=== PATIENT | female | born 2000 | race Caucasian/White ===

== ENCOUNTER 2024-06-14 14:04 | Emergency (ER) | payer MEDICAID, SELFPAY ==
[2024-06-14 14:17] VITALS: BP 129/88; PULSE 102; RESP 18; TEMP 37; O2SAT 99; BMI 33.4
--- NOTE | 2024-06-14 14:20 | XR_ITS ---
Examination: Knee, right , 3 views Technique: Knee AP, lateral, oblique 3 views Date and time of exam: June 14, 2024 1428 hrs. Indications: Patient fell 2 days ago with injury to the knee, knee pain Findings: No acute fracture Mild to moderate tricompartment osteoarthritis Moderate knee effusion Prior anterior cruciate ligament repair Impression: Moderate knee effusion, seen with internal derangement of the knee
--- NOTE | 2024-06-14 14:20 | XR_ITS ---
Examination: Tibia-Fibula, left , 2 views Technique: Tibia-fibula AP lateral 2 views Date and time of exam: June 14, 2024 1428 hrs. Indications: Patient fell 2 days ago with injury of the lower leg, lower leg pain Findings: No acute fracture No dislocation Impression: No acute fracture No foreign body
--- NOTE | 2024-06-14 15:07 | EDNOTE_ITS ---
<Statement entered by Marni Hay MD - 06/14/24 16:32> As co-signing physician, I was present and available for consult prn. I concur with the plan and care as documented by the midlevel provider. ED Fall Injury RME/HPI General Chief Complaint: Fall Stated Complaint: FALL Time Seen by Provider: 06/14/24 14:15 Arrival date/time: 06/14/24 14:04 24-year-old female presents to the emergency department complaint of right knee pain and left lower leg pain patient reports that she fell 2 days ago on her skateboard patient ports that she went to [facility] ER today and had an x-ray of her right knee but they did not x-ray her left tib-fib patient reports that they told her she did not have a fracture of her knee Limitations: no limitations Related Data Home Medications ?Medication ?Instructions ?Recorded ?Confirmed albuterol sulfate 90 mcg/actuation 2 inh inhalation [id number] PRN 04/01/21 12/03/21 aerosol inhaler Dyspnea Previous Rx's ?Medication ?Instructions ?Recorded doxycycline hyclate 100 mg tablet 100 mg PO BID #14 tabs 12/03/21 ibuprofen 800 mg tablet 800 mg PO TID PRN pain #30 tabs 12/03/21 fluconazole 150 mg tablet 150 mg PO QDAY #1 tab 04/30/22 (Diflucan) sulfamethoxazole 800 1 tab PO BID #14 tabs 04/30/22 mg-trimethoprim 160 mg tablet (Bactrim DS) aluminum-mag hydroxide-simethicone 5 ml PO Q3H PRN GERD #3,000 mL 03/15/24 200 mg-200 mg-20 mg/5 mL oral susp (Maalox Advanced) ibuprofen 600 mg tablet 600 mg PO TID PRN pain #14 tabs 03/15/24 ondansetron 4 mg disintegrating 4 mg PO Q8H PRN nausea and 03/15/24 tablet vomiting #10 tabs Allergies Allergy/AdvReac Type Severity Reaction Status Date / Time amoxicillin [From Augmentin] Allergy Mild HIVES Verified 06/14/24 14:10 clavulanic acid Allergy Mild HIVES Verified 06/14/24 14:10 [From Augmentin] milk Allergy Unknown Diarrhea Verified 06/14/24 14:10 cashew nut Allergy Anaphylaxis Verified 06/14/24 14:10 lactose Allergy Diarrhea Verified 06/14/24 14:10 Pistacia Vera (Pistachio) Allergy Anaphylaxis Verified 06/14/24 14:10 Review of Systems Review of Systems Systems Reviewed: All systems reviewed, normal except as documented Constitutional Constitutional: Reports system reviewed and no additional complaints, except as documented, Denies fever(s) and Denies headache(s) Eyes Eyes: Reports system reviewed and no additional complaints, except as documented and Denies blurry vision ENT Ears, Nose, Mouth, and Throat: Reports system reviewed and no additional complai nts, except as documented, Denies headache(s), Denies nasal congestion and Denies nasal discharge Cardiovascular Cardiovascular: Reports system reviewed and no additional complaints, except as documented, Denies chest pain and Denies dyspnea Respiratory Respiratory: Reports system reviewed and no additional complaints, except as documented, Denies chest congestion, Denies cough and Denies dyspnea Gastrointestinal Gastrointestinal: Reports system reviewed and no additional complaints, except as documented and Denies abdominal pain Musculoskeletal Musculoskeletal: Reports system reviewed and no additional complaints, except as documented and Reports other (Right knee pain, left leg pain) Integumentary/Breasts Skin/Breast: Reports system reviewed and no additional complaints, except as documented and Denies rash Neurologic Neurologic: Reports system reviewed and no additional complaints, except as documented, Reports as per HPI and Denies headache(s) Past Medical History Past Medical History NEUROLOGIC: Negative Neurological Disorders or Seizures CARDIAC: Negative Cardiac Disorders, Cardiac Arrhythmia, Hypercholesterolemia, Congestive Heart Failure, Congenital Heart Disease or Hypertension RESPIRATORY: Positive Asthma and Pneumonia; Negative Chronic Obstructive Pulmonary Disease (COPD) GASTROINTESTINAL: Negative Gastrointestinal Disorders, Hepatitis, Ulcer or Gastroesophageal Reflux Disease GENITOURINARY: Negative Genitourinary Disorders or Renal Disease MUSCULOSKELETAL: Negative Musculoskeletal Disorders or Fractures ENDOCRINE: Negative Endocrine Disorders, Diabetes Mellitus Type 1 or Diabetes Mellitus Type 2 HEMATOLOGIC: Negative Blood Disorders or Sickle Cell Disease PSYCHO/SOCIAL: Positive Anxiety and Attention Deficit Hyperactivity Disorder OTHER HISTORY: Positive Autism and Blood Transfusions; Negative Hospitalization, Autoimmune Disease, Down Syndrome, Developmental Delay, Shingles, Falls, Anesthesia Reactions, Organ Transplant, Chemotherapy, Radiation Therapy, Hyperbaric Therapy, MRSA, VRSA, Vancomycin-Resistant Enterococci, Human Immunodeficiency Virus (HIV), Chicken Pox, Measles, Mumps, Rubella (Japanese Measles), Pertussis, Clostridium Difficile or Cancer Family History FAMILY HISTORY: Positive Family Psychiatric Problems and Family Cardiac Disorders; Negative Family Respiratory Disorders, Family Gastrointestinal Problems, Family Cancer, Family Surgery or Family Anesthesia Reaction Surgical History SURGICAL: Positive Ear Surgery, Abdominal Surgery, Amputation and Section; Negative Organ Transplant Social History SMOKING STATUS: Current every day smoker SUBSTANCE USE: does not use ED Exam General Limitations: Present no limitations General appearance: Present alert and in no apparent distress Head Head exam: Present atraumatic Eye Eye exam: Present normal appearance, PERRL and EOMI ENT ENT exam: Present normal exam, normal oropharynx and mucous membranes moist Neck Neck exam: Present normal inspection, full ROM and trachea midline Chest Chest inspection: Present normal inspection and symmetric chest wall rise Respiratory Respiratory exam: Present normal lung sounds bilaterally Cardiovascular Cardiovascular exam: Present regular rate, normal rhythm and normal heart sounds Abdominal Exam Abdominal exam: Present soft and normal bowel sounds Extremities Exam Extremities exam: Present full ROM, tenderness, normal capillary refill and other (Bilateral leg pain) Back Exam Back exam: Present normal inspection and full ROM Neurological Exam Neurological exam: Present alert, oriented X3 and CN II-XII intact Psychiatric Psychiatric exam: Present normal affect and normal mood Skin Skin exam: Present warm, dry, intact and normal color Course Quality Measures none Orders Category Date Time Status XR knee RT 3V Stat Exams 06/14/24 14:20 Completed XR tibia fibula LT 2V Stat Exams 06/14/24 14:20 Completed Vital Signs Vital signs: Vital Signs Temperature 98.6 F 06/14/24 14:17 Pulse Rate 102 H 06/14/24 14:17 Respiratory Rate 18 06/14/24 14:17 Blood Pressure 129/88 H 06/14/24 14:17 Pulse Oximetry (%) 99 06/14/24 14:17 Oxygen Delivery Method Room Air 06/14/24 14:17 O2 saturation 99% room air with normal limits Fall MDM Narrative MDM Narrative:: 24-year-old female presents to the emergency department complaint of right knee pain and left lower leg pain patient reports that she fell 2 days ago on her skateboard patient ports that she went to [facility] ER today and had an x-ray of her right knee but they did not x-ray her left tib-fib patient reports that they told her she did not have a fracture of her knee Patient reports she is concerned about ligamentous injury as she has had previous surgery to her right knee X-ray of the right knee and tib-fib obtained no acute fractures noted Explained to the patient that she may have a ligamentous tear but will require MRI on an outpatient basis for further evaluation Patient discharged home in no distress to follow-up with primary care doctor in the next 24 to 48 hours and for any worsening symptoms to return to the ER immediately Patient data External records reviewed:: [facility] previous records Clinical information provided by:: patient Social determinants that could affect healthcare access:: none Patient has the following chronic illnesses:: None How is presenting disease/condition affected by chronic disease/condition?: no chronic disease Evaluation data The following diagnostics were reviewed and interpreted by me:: radiology exam(s) Lab and/or radiology exams considered but not ordered:: Radiology obtain Interpretation Summary: Reviewed by me Medications / Prescriptions Medications or Prescriptions considered but not ordered:: No meds Medication administrations:: No meds Consultations Consultation(s) initiated? (list below): No Diagnosis Fall Differential Diagnosis: other (Knee sprain, knee fracture) Most likely diagnosis given after review of the tests above:: Knee sprain Admission Indicated Admission indicated?: not indicated Admission Request Was there a request for admission?: No Disposition Plan Disposition Plan: Discharge Discharge Attestation Discharge Attestation: The patient and all family members were given an opportunity to ask questions and understood the discharge instructions. Discharge instructions specifically effects, indications for sooner follow up or return to the emergency department, and the expected course of current diagnosis. Patient condition: Stable Discharge Plan Plan Patient Disposition: HOME (Self Care) Disposition Comment: Stable Prescriptions/Referrals Prescriptions/Med Rec: No Action albuterol sulfate 90 mcg/actuation HFA aerosol inhaler 2 inh INHALATION X2ISCOD PRN (Reason: Dyspnea) Patient Comments: INHALE 1 PUFF BY MOUTH EVERY 4 6 HOURS NEEDED FOR SHORTNESS OF BREATH ibuprofen 800 mg tablet 800 mg PO TID PRN (Reason: pain) Qty: 30 0RF doxycycline hyclate 100 mg tablet 100 mg PO BID Qty: 14 0RF sulfamethoxazole-trimethoprim [Bactrim DS] 800-160 mg tablet 1 tab PO BID Qty: 14 0RF fluconazole [Diflucan] 150 mg tablet 150 mg PO QDAY Qty: 1 0RF Rx Instructions: take once after finishing antibiotics alum-mag hydroxide-simeth [Maalox Advanced] 200-200-20 mg/5 mL suspension 5 ml PO Q3H PRN (Reason: GERD) Qty: 3000 0RF ibuprofen 600 mg tablet 600 mg PO TID PRN (Reason: pain) Qty: 14 0RF ondansetron 4 mg tablet,disintegrating 4 mg PO Q8H PRN (Reason: nausea and vomiting) Qty: 10 0RF Referrals: No Primary/Family,Physician [Primary Care Provider] - In 1 week Problem List Clinical Impression: Right knee sprain, Left leg pain Patient/Caregiver Discharge Instructions Education Materials: ED RICE Additional Instructions: Please follow with your primary care doctor request outpatient MRI for worsening symptoms return immediately Print Language: Afghan Stand Alone Forms: Chasidy Award Info., Patient Portal Info Letter PA/COUGAR HUNTER Supervising Physician PA/COUGAR HUNTER Supervising Physician: Dr. Hay
== END 2024-06-14 15:25 | disposition home or self-care (01) ==
PROVIDERS: Emergency Provider Emergency Medicine
DX: S83.91XA Sprain of unspecified site of right knee, initial encounter (principal); S89.92XA Unspecified injury of left lower leg, initial encounter; V00.131A Fall from skateboard, initial encounter; Y93.51 Activity, roller skating (inline) and skateboarding
CPT/HCPCS: 73562; 73590; 99283